=== PATIENT | male | born 1960 | race Caucasian/White ===

== ENCOUNTER 2017-06-05 07:39 | Outpatient (CLI) | payer MEDICAID ==
[2017-06-05 10:55] LABS: LITHIUM 0.45 mmol/L
== END 2017-06-05 07:40 | disposition home or self-care (01) ==
LOC: LAB.F 07:39
PROVIDERS: ATTEND Psychiatry & Neurology Psychiatry
DX: Z79.899 Other long term (current) drug therapy (principal)
CPT/HCPCS: 36415; 80178

== ENCOUNTER 2018-07-03 10:56 | Outpatient (CLI) | payer MEDICAID ==
[2018-07-03 11:16] LABS: BASOPHILS # (AUTO) 0.1 10^3/uL (0.0-0.1); BASOPHILS % (AUTO) 1.1 %; EOSINOPHILS # (AUTO) 0.2 10^3/uL (0.0-0.7); EOSINOPHILS % (AUTO) 2.4 %; HGB - HEMOGLOBIN 13.7 g/dL (14.0-18.0); LYMPHOCYTES # (AUTO) 2.4 10^3/uL (1.5-3.5); LYMPHOCYTES % (AUTO) 24.3 %; MEAN CORPUSCULAR HEMOGLOBIN 31.6 pg (27.0-31.0); MEAN CORPUSCULAR VOLUME 90.3 fL (80.0-94.0); MEAN PLATELET VOLUME 6.8 fL (7.4-11.4); MONOCYTES # (AUTO) 0.6 10^3/uL (0.0-1.0); MONOCYTES % (AUTO) 5.9 %; NEUTROPHILS # (AUTO) 6.5 10^3/uL (1.5-6.6); NEUTROPHILS % (AUTO) 66.3 %; PLT - PLATELET COUNT 255 10^3/uL (130-450); RED BLOOD COUNT 4.34 10^6/uL (4.70-6.10); RED CELL DISTRIBUTION WIDTH 12.9 % (12.0-15.0); WHITE BLOOD COUNT 9.8 x10^3/uL (4.8-10.8)
[2018-07-03 11:29] LABS: ALBUMIN 4.5 g/dL (3.2-5.5); ALBUMIN/GLOBULIN RATIO 1.5 (1.0-2.2); BILIRUBIN,TOTAL 0.5 mg/dL (0.2-1.0); CALCIUM 9.3 mg/dL (8.5-10.3); CREATININE 0.8 mg/dL (0.6-1.2); TOTAL PROTEIN 7.5 g/dL (6.7-8.2)
[2018-07-03 12:25] LABS: THYROID STIMULATING HORMONE 2.36 uIU/mL (0.34-5.60)
[2018-07-03 12:27] LABS: FREE T4 (FREE THYROXINE) 0.62 ng/dL (0.58-1.64)
== END 2018-07-03 10:57 | disposition home or self-care (01) ==
LOC: LAB 10:56
PROVIDERS: ATTEND Registered Nurse
DX: F33.2 Major depressive disorder, recurrent severe without psychotic features (principal)
CPT/HCPCS: 36415; 80053; 84439; 84443; 85025

== ENCOUNTER 2019-02-07 13:32 | Emergency (ER) | payer MEDICAID ==
--- NOTE | 2019-02-07 13:37 | ED Physician Documentation ---
PD HPI CHEST PAIN - Stated complaint Stated Complaint: CHEST PX/LIGHTHEADED - History obtained from History obtained from: Patient, Family - History of Present Illness Timing - onset: Today Timing - details: Abrupt onset Pain level now: 4 Quality: Tightness Location: Substernal Associated symptoms: Nausea, Feeling faint / dizzy. No: Shortness of air, Diaphoresis, Vomiting, General Weakness, Palpitations, Cough Similar symptoms before: Has not had sx before Recently seen: Admitted - Additional information Additional information: A 58-year-old who presents with his complains that he is "just not feeling right". He got up to the bathroom in the middle of the night and laid back down and "heard a faucet dripping in his chest". He was nauseous and lightheaded. He went back to sleep and got up this morning and his blood pressure was "really high" at 144/89. He just had 2 stents placed On January 14 at [facility]. He was found to have had an IL on the when he went in to have a carpal tunnel surgery with the hand surgeon. They transferred him immediately to the [facility] and he underwent stent placement. He says that he had the heart attack on 13 January but stopped it by smoking marijuana. Never had prior cardiac history. He initially today told me that he was not having any chest pain but then related a little "tightness" at about a 2-4 out of 10 but also stated that he was anxious. He does not feel short of breath. He never vomited despite feeling nauseous and he has not passed out. Patient has been placed on blood pressure medications which he says he has been taking his blood pressures have been running in the 100 systolic. He also was placed on Brilinta and took 1 baby aspirin this morning. Denies numbness or tingling into his arms or legs. Patient does not smoke tobacco. He is on disability due to back injury. He has not yet started cardiac rehab and he does have a primary care provider. Review of Systems Constitutional: denies: Fever Nose: denies: Congestion Throat: denies: Sore throat Cardiac: reports: Chest pain / pressure Respiratory: denies: Dyspnea, Cough GI: reports: Nausea. denies: Abdominal Pain, Vomiting : denies: Dysuria Skin: denies: Rash Musculoskeletal: denies: Neck pain, Back pain Neurologic: denies: Focal weakness, Numbness, Syncope Immunocompromised: denies: Immunocompromised PD PAST MEDICAL HISTORY - Present Medications Home Medications: Ambulatory Orders Medication Instructions Recorded Confirmed Acetaminophen [Tylenol] 325 mg PO DAILY 02/07/19 02/07/19 Aspirin 81 mg PO DAILY 02/07/19 02/07/19 Atorvastatin Calcium 40 mg PO DAILY 02/07/19 02/07/19 Duloxetine HCl 60 mg PO DAILY 02/07/19 02/07/19 HYDROcod/ACETAM 5/325 [[place] 5/325] 1 each PO DAILY 02/07/19 02/07/19 Lisinopril 10 mg PO DAILY 02/07/19 02/07/19 Metoprolol Succinate 50 mg PO DAILY 02/07/19 02/07/19 Ticagrelor [Brilinta] 90 mg PO BID 02/07/19 02/07/19 traZODone [Desyrel] 50 mg PO DAILY 02/07/19 02/07/19 - Allergies Allergies/Adverse Reactions: Allergies Allergy/AdvReac Type Severity Reaction Status Date / Time naproxen Allergy Unknown Verified 02/07/19 13:43 PD ED PE NORMAL - Vitals Vital signs reviewed: Yes - General General: Alert and oriented X 3, No acute distress, Well developed/nourished - HEENT HEENT: Atraumatic, PERRL, EOMI, Pharynx benign, Other (Mucous membranes are dry.) - Neck Neck: No adenopathy, Thyroid normal - Cardiac Cardiac: RRR, No murmur, No gallop, No rub, Other (Slight diminishment the right radial pulse but that is where they accessed for the stent placement. 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, Other (No gross neurological deficits.) Results - Vitals Vitals: Oxygen O2 Source Room air - EKG (time done) 1342 Rate: Rate (enter#) (56) Rhythm: Sinus bradycardia Ischemia: Q waves (II, III, aVF, V3), T wave inversion (II, III, aVF) 1419 Rate: Rate (enter#) (61) Rhythm: Sinus bradycardia Ischemia: Q waves, T wave inversion Compare to prior EKG: Unchanged from prior EKG - Labs Labs: Laboratory Tests 02/07/19 02/07/19 02/07/19 13:50 13:50 13:50 WBC 12.9 H RBC 4.13 L Hgb 12.9 L Hct 38.0 L MCV 92.0 MCH 31.2 H MCHC 33.9 RDW 12.7 Plt Count 249 MPV 9.2 Neut # (Auto) 7.9 H Lymph # (Auto) 3.4 [place] # (Auto) 0.7 Eos # (Auto) 0.7 Baso # (Auto) 0.1 Absolute Nucleated RBC 0.00 Nucleated RBC % 0.0 Sodium 134 L Potassium 3.7 Chloride 100 L Carbon Dioxide 25 Anion Gap 9.0 BUN 14 Creatinine 1.0 Estimated GFR (MDRD) 76 L Glucose 163 H Calcium 9.1 Total Bilirubin 0.8 AST 18 ALT 22 Alkaline Phosphatase 74 Troponin I High Sens 6.0 Total Protein 7.1 Albumin 4.2 Globulin 2.9 Albumin/Globulin Ratio 1.4 Lipase 26 - Rads (name of study) cxr Radiology: EMP read contemporaneously (Pacer leads in place. No PTX or effusion. No infiltrate), See rad report PD MEDICAL DECISION MAKING - ED course Complexity details: reviewed results, re-evaluated patient, d/w patient, d/w family ED course: This received 1 sublingual nitroglycerin and he became very diaphoretic felt nauseous he went into third-degree heart block rates down into the low 40s blood pressure got as low as 90 systolic. A second IV was started and he was given a bolus of normal saline and Zofran. As we were attaching the EKG he went back into a sinus rhythm rate of 61 and no acute changes from the prior EKG. Talked with Dr. Cerda, The books salesperson at [facility] and he has accepted the patient in transfer. He requested that we start the patient on a heparin drip. Initial labs show a normal high-sensitivity troponin at 6.0. BUN/creatinine are normal glucose is mildly elevated at 163. - Critical Care Time(min): 30 Time Includes: Direct patient care, Reassess patient, Document care, Coordinate care, Medical consult, Family consult for tx dec Data interpretation: Labs, CXR Procedures excluded from critical care time: EKG Departure - Departure Disposition: 02 Transfer Acute Care Hosp Clinical Impression: Atypical chest pain, AV block, 3rd degree Condition: Good Discharge Date/Time: 02/07/19 15:30
[2019-02-07] MEDS ORDERED: ASPIRIN CHEW 81 MG TABLET PO STA (13:50)
[2019-02-07] MEDS ORDERED: NITROGLYCERIN SL 0.4 MG TABLET SL STA (13:50)
[2019-02-07 14:03] LABS: BASOPHILS # (AUTO) 0.1 10^3/uL (0.0-0.1); BASOPHILS % (AUTO) 0.8 %; EOSINOPHILS # (AUTO) 0.7 10^3/uL (0.0-0.7); EOSINOPHILS % (AUTO) 5.3 %; HGB - HEMOGLOBIN 12.9 g/dL (14.0-18.0); LYMPHOCYTES # (AUTO) 3.4 10^3/uL (1.5-3.5); LYMPHOCYTES % (AUTO) 26.6 %; MEAN CORPUSCULAR HEMOGLOBIN 31.2 pg (27.0-31.0); MEAN CORPUSCULAR HGB CONC 33.9 g/dL (32.0-36.0); MEAN PLATELET VOLUME 9.2 fL (7.4-11.4); MONOCYTES # (AUTO) 0.7 10^3/uL (0.0-1.0); MONOCYTES % (AUTO) 5.7 %; NEUTROPHILS # (AUTO) 7.9 10^3/uL (1.5-6.6); NEUTROPHILS % (AUTO) 61.1 %; PLT - PLATELET COUNT 249 10^3/uL (130-450); RED BLOOD COUNT 4.13 10^6/uL (4.70-6.10); RED CELL DISTRIBUTION WIDTH 12.7 % (12.0-15.0); WHITE BLOOD COUNT 12.9 x10^3/uL (4.8-10.8)
[2019-02-07] MEDS ORDERED: ONDANSETRON 4 MG/2 ML VIAL IVP STA (14:08)
[2019-02-07 14:20] LABS: ALBUMIN 4.2 g/dL (3.2-5.5); ALBUMIN/GLOBULIN RATIO 1.4 (1.0-2.2); BILIRUBIN,TOTAL 0.8 mg/dL (0.2-1.0); CALCIUM 9.1 mg/dL (8.5-10.3); TOTAL PROTEIN 7.1 g/dL (6.7-8.2)
[2019-02-07 14:35] VITALS: BP 135/81
--- NOTE | 2019-02-07 14:37 | XRAY Report ---
Reason: Chest Pain Procedure Date: 02/07/2019 Accession Number: [id number] / [id number] Procedure: XR - Chest 1 View X-Ray CPT Code: 45996 FULL RESULT: EXAM: CHEST RADIOGRAPHY EXAM DATE: 02/07/2019 02:03 PM. CLINICAL HISTORY: Chest Pain. COMPARISON: None. TECHNIQUE: 1 view. FINDINGS: Lungs/Pleura: Minimal atelectatic changes at the left base. Right lung is clear. Mediastinum: Within exam limitations, the cardiomediastinal contour is normal. Other: None. IMPRESSION: Minimal atelectatic changes at the left base, otherwise unremarkable exam. [facility]
[2019-02-07] MEDS ORDERED: SODIUM CHLORIDE 0.9% 1,000 ML IV ONE ×2 (14:43)
[2019-02-07] MEDS ORDERED: HEPARIN 25000UNITS/500ML (D5W) 25,000 UNIT/500 ML BAG IV STA (14:55)
[2019-02-07] MEDS ORDERED: HEPARIN 5,000 UNIT/ML VIAL IVP STA (14:55)
== END 2019-02-07 15:30 | disposition short-term general hospital (02) ==
LOC: ED 13:32
DX: I44.2 Atrioventricular block, complete (principal)
CPT/HCPCS: 36415; 71045; 80053; 83690; 84484; 85025; 93005; 96374; 96375; 99285; 99291; A9270